=== PATIENT | female | born 1990 | race African-American/Black ===

== ENCOUNTER 2020-06-16 18:24 | Emergency (ER) | payer OTHER ==
[~2020-06-16] VITALS: Ht 157.5 cm; Wt 59.0 kg
[~2020-06-16 18:24] MED LIST: APAP500 PO; IBUPROFEN 600600 M1 PO; IBUPROFEN 800800 M1 PO; LANOLIN56 GM; LOCOID 0.1% CRE15 GM TP; MACROBID 100 M100 M1 PO; NORCO 5-325 TA1 EACH PO; PRENATAL COMPL1 EACH PO; SENNA PO
[2020-06-16 19:21] LABS: HEMOGLOBIN 12.7 gm/dL (12.0-15.0); MCH 34.3 pg (26.0-34.0); MCHC 33.5 g/dL (28.0-37.0); MCV 102.4 fL (80.0-100.0); PLATELET COUNT 258 thou/uL (150-400); RBC 3.71 mil/uL (4.20-5.00); RDW 11.5 % (10.5-14.5)
[2020-06-16 19:30] LABS: ANION GAP 9 mmol/L (7-16); BUN 16 mg/dL (7-18); CHLORIDE 103 mmol/L (98-107); CO2 27 mmol/L (21-32); GLUCOSE 75 mg/dL (74-106); POTASSIUM 3.6 mmol/L (3.5-5.1); SODIUM 139 mmol/L (136-145)
[2020-06-16 19:39] LABS: TROPONIN-I <0.06 ng/mL (<0.06)
[2020-06-16 19:55] LABS: ABSOLUTE NEUTROPHILS 1.4 thou/uL (1.4-8.2); ATYPICAL LYMPHS 16 %
[2020-06-16] MEDS ORDERED: EC-NAPROXEN500 MG PO (20:31)
[2020-06-16 20:55] VITALS: BP 108/68
--- NOTE | 2020-06-17 07:17 | EKG ---
[address] [address] ELECTROCARDIOGRAM REPORT Name: ESTHER LARSEN Room #: [facility] Subhash#: [id number] Admission: 06/16/20 Attend Phys: Discharge: 06/16/20 Date of : [birth year] Report #: [id number] [facility] ED Test Date: 2020-06-16 Test Time: 18:36:13 Pat Name: ESTHER LARSEN Department: Room: Gender: F [employer]: morenita : 1990 Requested By: Eugenia Mejias Order Number: [id number] MD: Homero Arthur Measurements Intervals Floyd Rate: 83 P: 71 OR: 124 QRS: 47 QRSD: 103 T: 33 QT: 358 QTc: 421 Interpretive Statements Sinus rhythm No previous ECG available for comparison Electronically Signed On 06-17-2020 7:16:56 COUNTER ATTENDANT by Homero Arthur [email or web address] <ELECTRONICALLY SIGNED> By: Homero Arthur MD, [facility] 06/17/20 0716 1836 1836 Homero Arthur MD, FACC /EPI
== END 2020-06-16 20:55 | disposition home or self-care (01) ==
LOC: ER 18:24
PROVIDERS: Emergency Medicine
DX: R07.89 Other chest pain (principal); R06.02 Shortness of breath; F17.210 Nicotine dependence, cigarettes, uncomplicated